=== PATIENT | male | born 1970 | race Caucasian/White ===

== ENCOUNTER → 2017-02-07 | Outpatient (CLI) | payer BC | LOC: BRMIMAGING 15:40 | PROVIDERS: ATTEND Family Medicine | DX: S69.91XA Unspecified injury of right wrist, hand and finger(s), initial encounter (principal); S69.92XA Unspecified injury of left wrist, hand and finger(s), initial encounter | CPT/HCPCS: 73110-PO ==

== ENCOUNTER → 2017-03-18 | Outpatient (CLI) | payer BC | LOC: BRMIMAGING 07:54 | PROVIDERS: ATTEND Family Medicine | DX: M79.672 Pain in left foot (principal) | CPT/HCPCS: 73630-PO ==